=== PATIENT | male | born 1990 | race Two or more races ===

== ENCOUNTER 2016-10-04 00:25 | Emergency (ER) | payer OTHER ==
[~2016-10-04] VITALS: Ht 180.3 cm; Wt 122.5 kg
[2016-10-04 00:30] VITALS: BP 149/84
[2016-10-04] MEDS ORDERED: IBUPROFEN 600 MG TAB PO ONE (02:30)
== END 2016-10-04 03:04 | disposition home or self-care (01) ==
LOC: ER 00:37
DX: S93.401A Sprain of unspecified ligament of right ankle, initial encounter (principal); X50.1XXA Overexertion from prolonged static or awkward postures, initial encounter; Y93.89 Activity, other specified; Y99.8 Other external cause status; Y92.89 Other specified places as the place of occurrence of the external cause
CPT/HCPCS: 29515; 73610